=== PATIENT | female | born 2000 | race Caucasian/White ===

== ENCOUNTER 2020-01-02 21:40 | Inpatient (IN) | payer OTHER ==
[2020-01-02] MEDS ORDERED: ONDANSETRON HCL INJ/PF 4 MG/2 ML SDV IV ONE (21:58)
[2020-01-02] MEDS ORDERED: NORMAL SALINE 1000 ML 1,000 ML IV ONE (21:58)
--- NOTE | 2020-01-02 21:59 | ER Document Report ---
ED Medical Screen (RME) - General Chief Complaint: Abdominal Pain Stated Complaint: ABDOMINAL PAIN Time Seen by Provider: 01/02/20 21:56 Mode of Arrival: Ambulatory Information source: Patient Notes: Patient presents complaining of lower pelvic abdominal pain that started just a few hours prior to arrival. Patient reports nausea vomiting or diarrhea. Patient denies any urinary symptoms. Patient denies vaginal pain or discharge. Patient denies any concerns about . Patient does report feeling weak. She describes pain as being sharp. I have greeted and performed a rapid initial assessment of this patient. A comprehensive ED assessment and evaluation of the patient, analysis of test results and completion of the medical decision making process will be conducted by additional ED providers. Physical Exam - Vital signs Vitals: Temp Pulse Resp BP Pulse Ox 98.2 F 94 20 115/55 L 99 01/02/20 21:54 01/02/20 21:54 01/02/20 21:54 01/02/20 21:54 01/02/20 21:54 - Abdominal Tenderness: Tender - Lower pelvic tenderness Course - Vital Signs Vital signs: Temp Pulse Resp BP Pulse Ox 98.2 F 94 20 115/55 L 99 01/02/20 21:54 01/02/20 21:54 01/02/20 21:54 01/02/20 21:54 01/02/20 21:54
[2020-01-02] MEDS ORDERED: MORPHINE SULFATE 10 MG/ML INJ IV ONE (23:43)
--- NOTE | 2020-01-02 23:48 | ER Document Report ---
ED GI/ - General Chief Complaint: Abdominal Pain Stated Complaint: ABDOMINAL PAIN Time Seen by Provider: 01/02/20 21:56 Mode of Arrival: Ambulatory Notes: Patient is a 19-year-old female who presents emergency department with a chief complaint of pelvic pain. Patient states that she ended up having some dyspareunia. States that she also had some weakness. Describes her pain as a sharp pain in her pelvic area during sex. Patient had a miscarriage recently. States that she had labs done by her primary care and they were normal. - Related Data Allergies/Adverse Reactions: No Known Allergies Allergy (Verified 01/03/20 01:54) Past Medical History - General Information source: Patient - Social History Smoking Status: Never Smoker Chew tobacco use (# tins/day): No Frequency of alcohol use: Occasional Drug Abuse: None Family History: Reviewed & Not Pertinent Patient has homicidal ideation: No Review of Systems - Review of Systems Notes: REVIEW OF SYSTEMS: CONSTITUTIONAL : Denies recent illness. Denies recent unintentional weight loss. Denies fever, chills, or sweats. EENT: Denies eye, ear, throat, or mouth pain, discharge, or symptoms. Denies nasal or sinus congestion. CARDIOVASCULAR: Denies chest pain. RESPIRATORY: Denies shortness of breath, cough, congestion, difficulty breathing, or wheezing. GASTROINTESTINAL: Denies nausea, vomiting, and diarrhea. Denies constipation. See HPI. GENITOURINARY: Denies difficulty urinating, burning, blood in urine, urgency or frequency. FEMALE GENITOURINARY: See HPI. MUSCULOSKELETAL: Denies neck and back pain. Denies joint pain or swelling. SKIN: Denies rash, itchiness, or lesions HEMATOLOGIC : Denies easy bruising or bleeding. LYMPHATIC: Denies swollen, painful, enlarged glands. NEUROLOGICAL: Denies no numbness or tingling denies weakness. Denies headache. Denies altered mental status. Denies alteration in speech. PSYCHIATRIC: Denies stress, anxiety, alteration in sleep patterns, or depression. All other systems reviewed and negative. Physical Exam - Vital signs Vitals: Temp Pulse Resp BP Pulse Ox 98.2 F 94 20 115/55 L 99 01/02/20 21:54 01/02/20 21:54 01/02/20 21:54 01/02/20 21:54 01/02/20 21:54 - Notes Notes: PHYSICAL EXAMINATION: GENERAL: Appears well, healthy, well-nourished, no acute distress. HEAD: Normocephalic, atraumatic. EYES: PERRL, conjunctiva normal, all extraocular movements intact, sclera nonicteric ENT: Moist mucous membranes. NECK: Supple, no noticeable swelling, redness, rash. Normal range of motion. LUNGS: Equal breath sounds bilaterally and clear to auscultation. No wheezes rales or rhonchi. CARDIOVASCULAR: S1-S2, regular rate, regular rhythm. Radial pulses 2+, normal. ABDOMEN: Normoactive bowel sounds. Very tender mid lower pelvic area and abdomen, and no masses palpated. EXTREMITIES: Normal strength and range of motion, no pitting or edema. No cyanosis. NEUROLOGICAL: Moves all extremities upon command. Strength 5/5 in all extremities. PSYCH: Normal mood, normal affect. SKIN: Warm, dry. No rash, lesions, ulcerations noted. Normal skin turgor. Course - Re-evaluation Re-evalutation: 01/03/20 00:55 Rhea, PCT at bedside. Cervical motion tenderness noted. Will await wet mount results. Hematology shows a slight leukocytosis of 13,900 with a left shift with 77% neutrophils. Chemistries are unremarkable. hCG is negative. Still also waiting pelvic ultrasound. 01/03/20 01:41 Ultrasound shows a 3 cm complex cystic lesion in the right ovary. There is also a mild amount of free pelvic fluid. Just is reading this as pelvic inflammatory disease with abscess or hemorrhagic cyst rupture. Recommending CT of the abdomen and pelvis. Discussed this with the patient. We will also give Rocephin. 01/03/20 04:31 Patient has a 5.3 cm ovarian abscess. Discussed these results with Dr. Weeks, the [facility] on-call. Patient will be admitted to the [facility] service. - Vital Signs Vital signs: Temp Pulse Resp BP Pulse Ox 98.8 F 73 16 121/52 L 100 01/03/20 06:14 01/03/20 06:14 01/03/20 06:14 01/03/20 06:14 01/03/20 06:14 - Laboratory Result Diagrams: 01/02/20 23:50 01/02/20 23:50 Laboratory results interpreted by me: 10/02/20 10/02/20 23:50 23:50 WBC 13.9 H RDW 14.1 H Absolute Neuts (auto) 10.7 H Total Bilirubin 0.1 L Neonat Total Bilirubin 0.0 L Discharge - Discharge Clinical Impression: Pelvic pain, Right tubo-ovarian abscess Condition: Stable Disposition: ADMITTED INPATIENT Admitting Provider: [facility] Unit Admitted: Surgical Floor - 2nd floor
[2020-01-02 23:58] LABS: ABSOLUTE EOSINOPHILS # (AUTO) 0.3 10^3/uL (0.0-0.6); ABSOLUTE MONOCYTES (AUTO) 0.9 10^3/uL (0.1-1.4); ABSOLUTE NEUT (AUTO) 10.7 10^3/uL (1.7-8.2); BASOPHILS % (AUTO) 0.3 % (0-2); EOSINOPHILS % (AUTO) 2.1 % (0-6); HEMATOCRIT 36.2 % (36.0-47.0); HEMOGLOBIN 12.8 g/dL (12.0-15.5); LYMPHOCYTES % (AUTO) 14.2 % (13-45); MEAN CORPUSCULAR HEMOGLOBIN 29.1 pg (27.0-33.4); MEAN CORPUSCULAR HGB CONC 35.2 g/dL (32.0-36.0); MEAN CORPUSCULAR VOLUME 83 fl (80-97); MONOCYTES % (AUTO) 6.3 % (3-13); PLATELET COUNT 207 10^3/uL (150-450); RED BLOOD COUNT 4.38 10^6/uL (3.72-5.28); RED CELL DISTRIBUTION WIDTH 14.1 % (11.5-14.0); SEGMENTED NEUTROPHILS % (AUTO) 77.1 % (42-78); TOTAL CELLS COUNTED % (AUTO) 100 %; WHITE BLOOD COUNT 13.9 10^3/uL (4.0-10.5)
[2020-01-03 00:19] LABS: ALBUMIN 4.4 g/dL (3.5-5.0); ALKALINE PHOSPHATASE 72 U/L (38-126); ANION GAP 11 (5-19); ASPARTATE AMINO TRANSFERASE 23 U/L (14-36); BILIRUBIN,DIRECT 0.1 mg/dL (0.0-0.4); BILIRUBIN,TOTAL 0.1 mg/dL (0.2-1.3); BLOOD UREA NITROGEN 11 mg/dL (7-20); CALCIUM 9.5 mg/dL (8.4-10.2); CARBON DIOXIDE 23 mmol/L (22-30); CHLORIDE 106 mmol/L (98-107); GLUCOSE 86 mg/dL (75-110); POTASSIUM 3.9 mmol/L (3.6-5.0); TOTAL PROTEIN 7.2 g/dL (6.3-8.2)
--- NOTE | 2020-01-03 01:24 | RADIOLOGY REPORT (SQ) ---
EXAM DESCRIPTION: US PELVIS COMPLETED DATE/TME: 01/02/2020 21:58 CLINICAL HISTORY: 19 years, Female, lower pelvic pain COMPARISON: None. TECHNIQUE: Endovaginal images of the pelvis were obtained. Grayscale imaging and Doppler imaging were performed. LIMITATIONS: None. FINDINGS: Uterus measures approximately 8.2 x 4 x 4.2 cm and appears within normal limits. Endometrium has a homogenous appearance and measures 0.9 cm in thickness. Incidental small nabothian cysts are noted within the uterine cervix. Ovaries measure approximately 4.4 x 5.1 x 4.7 cm on the right and 3.6 x 3 x 2 cm on the left. Right ovary contains a 3 cm mildly complex cyst. No left adnexal mass. There is no evidence of ovarian torsion on Doppler imaging. There is a mild amount of free pelvic fluid. There is also intermediate echogenicity adjacent to the uterus and ovaries, with complex fluid or soft tissue thickening not excluded. IMPRESSION: 3 cm complex cystic lesion within the right ovary. There is also a mild amount of free pelvic fluid and there is nonspecific intermediate echogenicity within the pelvis which could represent complex fluid or soft tissue thickening. Pelvic inflammatory disease with abscess and hemorrhagic cyst rupture would be the main considerations. Clinical correlation is recommended. Contrast-enhanced pelvic CT might provide additional characterization as clinically directed. copyright 2010 [employer]- All Rights Reserved
[2020-01-03 01:29] LABS: EPITHELIALS (WET MOUNT) 3+ EPITHELIALS SEEN; RBCS (WET MOUNT) NO RBCS SEEN; T.VAGINALIS (WET MOUNT) NO TRICHOMONAS SEEN; WBCS (WET MOUNT) RARE WBCS SEEN; YEAST (WET MOUNT) NO YEAST SEEN
[2020-01-03] MEDS ORDERED: CEFTRIAXONE INJ 1000 MG VIAL IV ONE (01:38)
[2020-01-03 02:57] LABS: CHLAM PCR NOT DETECTED (NOT DETECT)
[2020-01-03] MEDS ORDERED: MORPHINE SULFATE 10 MG/ML INJ IV ONE (03:09)
--- NOTE | 2020-01-03 04:07 | RADIOLOGY REPORT (SQ) ---
EXAM DESCRIPTION: CT ABDOMEN PELVIS WITH IV CONTRAST COMPLETED DATE/TME: 01/03/2020 01:29 CLINICAL HISTORY: pelvic pain; eval free fluid COMPARISON: None Available. TECHNIQUE: CT of the abdomen and pelvis performed following IV administration of 81 mL Omnipaque 350. FINDINGS: Lung Bases: The visualized lung bases are clear. Bones: No destructive bone lesions identified. Abdomen: Liver: The liver has normal size and density. No intrahepatic biliary dilatation. Gallbladder: No calcified gallstones. Spleen, Pancreas, and Adrenal Glands: The spleen, pancreas, and adrenal glands are unremarkable. Kidneys: No hydronephrosis or obstructing calculus. Vasculature: The aorta and IVC have normal caliber and position. The portal vein is patent. The proximal visceral and renal arteries are patent. Stomach: The stomach and duodenum have normal course. Other: No free intraperitoneal air. Small amount of free fluid. Pelvis: Bladder: Urinary bladder is unremarkable. Bowel: No dilated loops of large or small bowel. Appendix: Normal appendix. Pelvis: There is a thick-walled cyst arising from the right ovary measures 5.3 x 4.6 x 4.9 cm. IMPRESSION: 1. There is a 5.3 cm thick-walled fluid collection arising from the right ovary. Findings concerning for tubo-ovarian abscess. Differential considerations include pelvic neoplasm. Gynecological consultation recommended. Pelvic MRI may be helpful. This exam was performed according to our departmental dose-optimization program, which includes automated exposure control, adjustment of the mA and/or kV according to patient size and/or use of iterative reconstruction technique.
[2020-01-03] MEDS ORDERED: DOXYCYCLINE HYCLATE INJ 100 MG VIAL IV ONE (04:28)
[2020-01-03] MEDS ORDERED: CEFOXITIN 1 GM/D5W RTU 1 GM/50 ML RTUPB IV ONE (04:28)
[2020-01-03 04:47] LABS: APPEARANCE,URINE CLEAR; BILIRUBIN,URINE NEGATIVE (NEGATIVE); COLOR,URINE STRAW; GLUCOSE, URINE NEGATIVE (NEGATIVE); KETONES,URINE NEGATIVE (NEGATIVE); LEUKOCYTE ESTERASE,URINE NEGATIVE (NEGATIVE); NITRITE,URINE NEGATIVE (NEGATIVE); PROTEIN,URINE NEGATIVE (NEGATIVE); URINE SPECIFIC GRAVITY 1.049; UROBILINOGEN,URINE NEGATIVE mg/dL (<2.0)
[2020-01-03] MEDS ORDERED: DOXYCYCLINE HYCLATE INJ 100 MG VIAL IV SCH (05:00)
[2020-01-03] MEDS ORDERED: CEFOXITIN INJ 2 GM VIAL IV SCH (06:00)
[2020-01-03] MEDS ORDERED: OXYCODONE-ACETAMINOPHEN 5-325 MG TABLET PO PRN (06:29)
--- NOTE | 2020-01-03 06:29 | PDOC H&P ---
History of Present Illness Admission Date/PCP: 01/03/20 05:17 ERICA BENEDICT MD Patient complains of: abdominal pain post intercourse History of Present Illness: HUEY NINO is a 19 year old female who was previously healthy until tonight when she experienced diffuse lower abd pain after intercourse. She reports that the pain has progressed to the right side. She denies prior h/o similar issues. She denies h/o GC/CT. She reports that she is hungry. LMP was 2nd week Sept. She is not on contraception. Past Medical History Gynecological Infection: No Past Surgical History Past Surgical History: Reports: None Social History Information Source: Patient Lives with: Family, Spouse/Significant other Smoking Status: Never Smoker Electronic Cigarette use?: No Hx Recreational Drug Use: No Drugs: None Hx Prescription Drug Abuse: No - Advance Directive Resuscitation Status: Full Code Family History Family History: None Parental Family History Reviewed: No Children Family History Reviewed: NA Sibling(s) Family History Reviewed.: NA Medication/Allergy Allergies/Adverse Reactions: No Known Allergies Allergy (Verified 01/03/20 01:54) Review of Systems Constitutional: ABSENT: chills, fever(s), headache(s), weight gain, weight loss Cardiovascular: ABSENT: chest pain, dyspnea on exertion, edema, orthropnea, palpitations Respiratory: ABSENT: cough, hemoptysis Gastrointestinal: ABSENT: constipation, diarrhea, hematemesis, hematochezia, nausea, vomiting Genitourinary: ABSENT: dysuria, hematuria Neurological: ABSENT: abnormal gait, abnormal speech, confusion, dizziness, focal weakness, syncope Physical Exam - Physical Exam Vital Signs: Temp Pulse Resp BP Pulse Ox 98.8 F 73 16 121/52 L 100 01/03/20 06:14 01/03/20 06:14 01/03/20 06:14 01/03/20 06:14 01/03/20 06:14 Intake & Output 01/01/20 01/02/20 01/03/20 06:59 06:59 06:59 Intake Total 1050 Balance 1050 Weight 71.3 kg General appearance: PRESENT: no acute distress, well-developed, well-nourished Head exam: PRESENT: atraumatic, normocephalic Neck exam: PRESENT: full ROM. ABSENT: carotid bruit, JVD, lymphadenopathy, thyromegaly Respiratory exam: PRESENT: clear to auscultation shabana, symmetrical, unlabored Cardiovascular exam: PRESENT: RRR. ABSENT: diastolic murmur, rubs, systolic murmur Pulses: PRESENT: normal dorsalis pedis pul, +2 pedal pulses bilateral Vascular exam: PRESENT: normal capillary refill GI/Abdominal exam: PRESENT: guarding, normal bowel sounds, rebound - rebound on right, ttp bilaterally, tenderness Rectal exam: PRESENT: deferred Extremities exam: PRESENT: full ROM. ABSENT: calf tenderness, clubbing, pedal edema Neurological exam: PRESENT: alert, awake, oriented to person, oriented to place, oriented to time, oriented to situation, CN II-XII grossly intact. ABSENT: motor sensory deficit Psychiatric exam: PRESENT: appropriate affect, normal mood. ABSENT: homicidal ideation, suicidal ideation Skin exam: PRESENT: dry, intact, warm. ABSENT: cyanosis, rash Result Laboratory Results: 01/02/20 23:50 01/02/20 23:50 01/02/20 01/02/20 01/02/20 23:50 23:50 23:50 WBC 13.9 H RBC 4.38 Hgb 12.8 Hct 36.2 MCV 83 MCH 29.1 MCHC 35.2 RDW 14.1 H Plt Count 207 Seg Neutrophils % 77.1 Sodium 139.7 Potassium 3.9 Chloride 106 Carbon Dioxide 23 Anion Gap 11 BUN 11 Creatinine 0.82 Est GFR ( Amer) > 60 Glucose 86 Calcium 9.5 Total Bilirubin 0.1 L AST 23 Alkaline Phosphatase 72 Total Protein 7.2 Albumin 4.4 Lipase 38.8 Serum HCG, Qual NEGATIVE Urine Color Urine Appearance Urine pH Ur Specific [place] Urine Protein Urine Glucose (UA) Urine Ketones Urine Blood Urine Nitrite Ur Leukocyte Esterase Urine WBC (Auto) Urine RBC (Auto) 01/03/20 03:50 WBC RBC Hgb Hct MCV MCH MCHC RDW Plt Count Seg Neutrophils % Sodium Potassium Chloride Carbon Dioxide Anion Gap BUN Creatinine Est GFR ( Amer) Glucose Calcium Total Bilirubin AST Alkaline Phosphatase Total Protein Albumin Lipase Serum HCG, Qual Urine Color STRAW Urine Appearance CLEAR Urine pH 6.0 Ur Specific [place] 1.049 Urine Protein NEGATIVE Urine Glucose (UA) NEGATIVE Urine Ketones NEGATIVE Urine Blood NEGATIVE Urine Nitrite NEGATIVE Ur Leukocyte Esterase NEGATIVE Urine WBC (Auto) 0 Urine RBC (Auto) 0 Impressions: Pelvis Ultrasound 01/02/20 21:58 IMPRESSION: 3 cm complex cystic lesion within the right ovary. There is also a mild amount of free pelvic fluid and there is nonspecific intermediate echogenicity within the pelvis which could represent complex fluid or soft tissue thickening. Pelvic inflammatory disease with abscess and hemorrhagic cyst rupture would be the main considerations. Clinical correlation is recommended. Contrast-enhanced pelvic CT might provide additional characterization as clinically directed. copyright 2010 [email or web address]- All Rights Reserved Abdomen/Pelvis CT 01/03/20 01:29 IMPRESSION: 1. There is a 5.3 cm thick-walled fluid collection arising from the right ovary. Findings concerning for tubo-ovarian abscess. Differential considerations include pelvic neoplasm. Gynecological consultation recommended. Pelvic MRI may be helpful. This exam was performed according to our departmental dose-optimization program, which includes automated exposure control, adjustment of the mA and/or kV according to patient size and/or use of iterative reconstruction technique. Status: Imported from PACS Assessment & Plan - Diagnosis (1) Pelvic pain Is this a current diagnosis for this admission?: Yes Plan: Likely caused by ovarian cyst/adnexal mass suspected to be TOA at this time. No e/o torsion. US and CT scan reviewed. (2) Right tubo-ovarian abscess Is this a current diagnosis for this admission?: Yes Plan: admit for IV abx. GC/CT negative. Blood cultures done. Afebrile. Pain control written for. Reviewed TOA concerns and will likely need IR drainage at some point if it is amenable to access. Other possible cause would be hemorrhagic cyst - however, appears more like a walled off abscess. Plan of care reviewed with patient. Ok to eat for now. - Time Time Spent: 30 to 50 Minutes Critical Time spent with patient: Less than 15 minutes Medications reviewed and adjusted accordingly: Yes Anticipated Discharge Disposition: Home, Self Care Anticipated Discharge Timeframe: within 72 hours - Inpatient Certification Based on my medical assessment, after consideration of the patient's comorbidities, presenting symptoms, or acuity I expect that the services needed warrant INPATIENT care.: Yes I certify that my determination is in accordance with my understanding of Medicare's requirements for reasonable and necessary INPATIENT services [42 CFR 412.3e].: Yes Medical Necessity: Need For IV Fluids, Need for Pain Control, Need for IV Antibiotics, Need for Surgery Post Hospital Care: D/C [employer] Documentation
[2020-01-03] MEDS ORDERED: HYDROMORPHONE HCL INJ/PF 2 MG/ML AMPULE IV PRN (06:31)
[2020-01-03] MEDS: OXYCODONE-ACETAMINOPHEN 5-325 MG TABLET PO PRN ×3 (07:02→19:41)
[2020-01-03] MEDS: CEFOXITIN SODIUM 2 GM in DEXTROSE 5%-WATER 100 ML IV SCH ×3 (14:43→21:48)
[2020-01-03] MEDS: DOXYCYCLINE HYCLATE 100 MG in DEXTROSE 5%-WATER 250 ML IV SCH (19:23)
[2020-01-04] MEDS: CEFOXITIN SODIUM 2 GM in DEXTROSE 5%-WATER 100 ML IV SCH ×4 (03:07→21:19)
[2020-01-04] MEDS: DOXYCYCLINE HYCLATE 100 MG in DEXTROSE 5%-WATER 250 ML IV SCH ×2 (05:46→18:10)
[2020-01-04] MEDS: OXYCODONE-ACETAMINOPHEN 5-325 MG TABLET PO PRN ×4 (05:51→21:19)
[2020-01-04] MEDS: ONDANSETRON HCL INJ/PF 4 MG/2 ML SDV IV PRN ×2 (08:28→23:14)
--- NOTE | 2020-01-04 09:26 | PDOC PROGRESS REPORT ---
Subjective Progress Note for:: 01/04/20 Subjective:: Feeling better today. Reason For Visit: TUBO-OVARIAN ABSCESS Physical Exam - Physical Exam Vital Signs: Temp Pulse Resp BP Pulse Ox 97.8 F 53 L 16 102/51 L 97 01/04/20 07:30 01/04/20 07:23 01/03/20 19:22 01/04/20 07:23 01/04/20 07:23 Intake & Output 01/03/20 01/04/20 01/05/20 06:59 06:59 06:59 Intake Total 1050 250 Balance 1050 250 Weight 71.3 kg 75 kg General appearance: PRESENT: no acute distress, well-developed, well-nourished GI/Abdominal exam: PRESENT: tenderness - over pelvis. Psychiatric exam: PRESENT: appropriate affect, normal mood. ABSENT: homicidal ideation, suicidal ideation Result Laboratory Results: 01/02/20 23:50 01/02/20 23:50 Impressions: Pelvis Ultrasound 01/02/20 21:58 IMPRESSION: 3 cm complex cystic lesion within the right ovary. There is also a mild amount of free pelvic fluid and there is nonspecific intermediate echogenicity within the pelvis which could represent complex fluid or soft tissue thickening. Pelvic inflammatory disease with abscess and hemorrhagic cyst rupture would be the main considerations. Clinical correlation is recommended. Contrast-enhanced pelvic CT might provide additional characterization as clinically directed. copyright 2011 [employer]- All Rights Reserved Abdomen/Pelvis CT 01/03/20 01:29 IMPRESSION: 1. There is a 5.3 cm thick-walled fluid collection arising from the right ovary. Findings concerning for tubo-ovarian abscess. Differential considerations include pelvic neoplasm. Gynecological consultation recommended. Pelvic MRI may be helpful. This exam was performed according to our departmental dose-optimization program, which includes automated exposure control, adjustment of the mA and/or kV according to patient size and/or use of iterative reconstruction technique. Improving clinically with the antibiotics. Assessment & Plan - Diagnosis (1) Pelvic pain Is this a current diagnosis for this admission?: Yes Plan: continue abx and followup sono and cbc tomorrow - Time Time Spent with patient: 15-24 minutes Medications reviewed and adjusted accordingly: Yes Anticipated discharge: Home Anticipated DC Timeframe: within 36 hours
[2020-01-05] MEDS: CEFOXITIN SODIUM 2 GM in DEXTROSE 5%-WATER 100 ML IV SCH ×3 (03:31→15:32)
[2020-01-05] MEDS: OXYCODONE-ACETAMINOPHEN 5-325 MG TABLET PO PRN ×3 (04:21→18:30)
[2020-01-05] MEDS: DOXYCYCLINE HYCLATE 100 MG in DEXTROSE 5%-WATER 250 ML IV SCH ×2 (05:50→18:18)
[2020-01-05] MEDS: ONDANSETRON HCL INJ/PF 4 MG/2 ML SDV IV PRN (08:12)
--- NOTE | 2020-01-05 09:46 | PDOC PROGRESS REPORT ---
Subjective Progress Note for:: 01/05/20 Subjective:: pt indicates she is still having some abdominal pain but that it is improved. I was notified by Micro regarding Staph Lugrenes in 1/4 blood cultures. It is sensitive to the current antibiotics. She is tolerating a regular diet. ambulating well. Reason For Visit: TUBO-OVARIAN ABSCESS Physical Exam - Physical Exam Vital Signs: Temp Pulse Resp BP Pulse Ox 97.6 F 57 L 16 106/52 L 96 01/05/20 09:02 01/05/20 09:02 01/05/20 09:02 01/05/20 09:02 01/05/20 09:02 Intake & Output 01/04/20 01/05/20 01/06/20 06:59 06:59 06:59 Intake Total 250 1850 250 Balance 250 1850 250 Weight 75 kg 75 kg General appearance: PRESENT: no acute distress, cooperative GI/Abdominal exam: PRESENT: soft, tenderness - left lower quadrant mild tenderness with palpation. indicates better than yesterday however. Result Laboratory Results: 01/02/20 23:50 01/02/20 23:50 01/03/20 01:56 Blood Blood Culture (PCR) - Final 01/03/20 01:56 Blood Blood Culture - Final Staphylococcus Lugdunensis Impressions: Pelvis Ultrasound 01/02/20 21:58 IMPRESSION: 3 cm complex cystic lesion within the right ovary. There is also a mild amount of free pelvic fluid and there is nonspecific intermediate echogenicity within the pelvis which could represent complex fluid or soft tissue thickening. Pelvic inflammatory disease with abscess and hemorrhagic cyst rupture would be the main considerations. Clinical correlation is recommended. Contrast-enhanced pelvic CT might provide additional characterization as clinically directed. copyright 2011 [employer]- All Rights Reserved Abdomen/Pelvis CT 01/03/20 01:29 IMPRESSION: 1. There is a 5.3 cm thick-walled fluid collection arising from the right ovary. Findings concerning for tubo-ovarian abscess. Differential considerations include pelvic neoplasm. Gynecological consultation recommended. Pelvic MRI may be helpful. This exam was performed according to our departmental dose-optimization program, which includes automated exposure control, adjustment of the mA and/or kV according to patient size and/or use of iterative reconstruction technique. Assessment & Plan - Diagnosis (1) Pelvic pain Is this a current diagnosis for this admission?: Yes (2) Right tubo-ovarian abscess Is this a current diagnosis for this admission?: Yes (3) Sepsis Qualifiers: Sepsis type: sepsis due to unspecified organism Sepsis acute organ dysfunction status: unspecified Qualified Code(s): A41.9 - Sepsis, unspecified organism Is this a current diagnosis for this admission?: Yes - Time Time Spent with patient: Less than 15 minutes Medications reviewed and adjusted accordingly: No Anticipated discharge: Home Anticipated DC Timeframe: within 48 hours - Inpatient Certification Based on my medical assessment, after consideration of the patient's comorbidities, presenting symptoms, or acuity I expect that the services needed warrant INPATIENT care.: Yes I certify that my determination is in accordance with my understanding of Medicare's requirements for reasonable and necessary INPATIENT services [42 CFR 412.3e].: Yes Medical Necessity: Need for IV Antibiotics - Plan Summary Plan Summary: Have requested an Infectious Disease consult to obtain input on time needed for IV antibiotics on this particular organism. Will follow up her repeat pelvic sono that Dr. Vela ordered. Hopefully patient will be ok to go home today or tomorrow but needs this follow up first.
[2020-01-05 10:02] LABS: HEMATOCRIT 36.1 % (36.0-47.0); HEMOGLOBIN 12.5 g/dL (12.0-15.5); MEAN CORPUSCULAR HEMOGLOBIN 28.9 pg (27.0-33.4); MEAN CORPUSCULAR HGB CONC 34.7 g/dL (32.0-36.0); MEAN CORPUSCULAR VOLUME 83 fl (80-97); PLATELET COUNT 188 10^3/uL (150-450); RED BLOOD COUNT 4.35 10^6/uL (3.72-5.28); RED CELL DISTRIBUTION WIDTH 13.4 % (11.5-14.0); WHITE BLOOD COUNT 9.9 10^3/uL (4.0-10.5)
--- NOTE | 2020-01-05 10:22 | RADIOLOGY REPORT (SQ) ---
EXAM DESCRIPTION: U/S NON OB PEL TV W/DOPPLER IMAGES COMPLETED DATE/TIME: 01/05/2020 9:36 am REASON FOR STUDY: follow up COMPARISON: 01/03/2020 TECHNIQUE: Dynamic and static grayscale images acquired of the pelvis via transvaginal approach and recorded on PACS. Additional selected color Doppler and spectral images recorded. LIMITATIONS: None. FINDINGS: UTERUS: Contour normal. No mass. ENDOMETRIAL STRIPE: No focal or generalized thickening. No masses. CERVIX: Multiple Nabothian cysts. RIGHT OVARY AND DOPPLER: As on the prior examination, a complex cystic lesion within the right ovary measures 3.0 x 3.0 x 1.7 cm. Considerations for this finding includes possible hemorrhagic cyst. N ormal arterial vascular flow without evidence for torsion. Trace of free fluid in the right adnexum. LEFT OVARY AND DOPPLER: Normal size. No worrisome masses. Normal arterial vascular flow without evide nce for torsion. FREE FLUID: Trace of free fluid in the cul de sac. OTHER: No other significant finding. MEASUREMENTS: UTERUS: 7.4 x 4.4 x 4.4 cm ENDOMETRIAL STRIPE: 13 mm RIGHT OVARY: 4.8 x 4.4 x 4.2 cm LEFT OVARY: 3.5 x 2.7 x 2.1 cm IMPRESSION: 1. As on the prior examination dated 01/03/2020, complex cystic lesion within the right ovary, may represent hemorrhagic cyst. 2. Trace of free fluid in the right adnexum and cul-de-sac. 3. Multiple Nabothian cysts in the cervix region. TECHNICAL DOCUMENTATION: JOB ID: [id number] 2010 [employer]- All Rights Reserved Reading location - IP/workstation name: [email or web address]
--- NOTE | 2020-01-05 18:24 | Progress Note ---
Provider Note Provider Note: ID Note- I was asked to comment on the positive blood culture (Staph lugdunensis) in one of two sets of blood cultures done on January 02. The patient has a clinical diagnosis of tuboovarian abscess (TOA). She is reportedly responding clinically to antibiotics. Staph lugdunensis is a common skin contaminant, but it can be a pathogen. In this patient's case, I think that it is NOT a pathogen. Recommend continuing current therapy for TOA. I see no reason why the patient cannot continue treatment of TOA with oral antibiotics at home if she is clinically improved. I discussed the patient's case with Dr. Vuong by phone. Please contact me if there are questions. Da Nova MD Pager: [phone]
--- NOTE | 2020-01-05 18:38 | PDOC DISCHARGE SUMMARY ---
Impression - Admit/DC Date/PCP Admission Date/Primary Care Provider: 01/03/20 05:17 ERICA BENEDICT MD Discharge Date: 01/05/20 - Discharge Diagnosis (1) Pelvic pain Is this a current diagnosis for this admission?: Yes (2) Right tubo-ovarian abscess Is this a current diagnosis for this admission?: Yes (3) Sepsis Is this a current diagnosis for this admission?: Yes - Assessment Summary: patient admitted for tuboovarian abscess. BC returned with Lola Liao and ID was consulted. Per Dr. Nova her IV treatment is appropriate and since she has improved clinically is ok to discharge home. Her sono today and WBC is improved from admission and the patient feels much better. - Additional Information Resuscitation Status: Full Code Discharge Diet: As Tolerated Discharge Activity: Balance Activity w/Rest, Pelvic Rest Referrals: ERICA BENEDICT MD [Primary Care Provider] - Follow up as needed Prescriptions: Oxycodone HCl/Acetaminophen [Percocet 5-325 mg Tablet] 1 tab PO Q4HP PRN #20 tablet PRN Reason: Doxycycline Hyclate 100 mg PO BID #20 tablet. Metronidazole [Flagyl 500 mg Tablet] 500 mg PO TID #30 tablet Ibuprofen [Ibu] 800 mg PO Q8 #60 tablet Cephalexin Monohydrate [Keflex 500 mg Capsule] 500 mg PO QID #20 capsule Home Medications: Cephalexin Monohydrate [Keflex 500 mg Capsule] 500 mg PO QID #20 capsule 01/05/20 Doxycycline Hyclate 100 mg PO BID #20 tablet. 01/05/20 Ibuprofen [Ibu] 800 mg PO Q8 #60 tablet 01/05/20 Metronidazole [Flagyl 500 mg Tablet] 500 mg PO TID #30 tablet 01/05/20 Oxycodone HCl/Acetaminophen [Percocet 5-325 mg Tablet] 1 tab PO Q4HP PRN #20 tablet 01/05/20 History of Present Illiness History of Present Illness: HUEY NINO is a 19 year old female Physical Exam - Physical Exam Vital Signs: Temp Pulse Resp BP Pulse Ox 98.0 F 61 16 99/49 L 100 01/05/20 16:00 01/05/20 16:00 01/05/20 16:00 01/05/20 16:32 01/05/20 16:00 Intake & Output 01/04/20 01/05/20 01/06/20 06:59 06:59 06:59 Intake Total 250 1850 471 Balance 250 1850 471 Weight 75 kg 75 kg Results Laboratory Results: WBC 9.9 10^3/uL (4.0-10.5) 01/05/20 09:49 RBC 4.35 10^6/uL (3.72-5.28) 01/05/20 09:49 Hgb 12.5 g/dL (12.0-15.5) 01/05/20 09:49 Hct 36.1 % (36.0-47.0) 01/05/20 09:49 MCV 83 fl (80-97) 01/05/20 09:49 MCH 28.9 pg (27.0-33.4) 01/05/20 09:49 MCHC 34.7 g/dL (32.0-36.0) 01/05/20 09:49 RDW 13.4 % (11.5-14.0) 01/05/20 09:49 Plt Count 188 10^3/uL (150-450) 01/05/20 09:49 Lymph % (Auto) 14.2 % (13-45) 01/02/20 23:50 [place] % (Auto) 6.3 % (3-13) 01/02/20 23:50 Eos % (Auto) 2.1 % (0-6) 01/02/20 23:50 Baso % (Auto) 0.3 % (0-2) 01/02/20 23:50 Absolute Neuts (auto) 10.7 10^3/uL (1.7-8.2) H 01/02/20 23:50 Absolute Lymphs (auto) 2.0 10^3/uL (0.5-4.7) 01/02/20 23:50 Absolute Monos (auto) 0.9 10^3/uL (0.1-1.4) 01/02/20 23:50 Absolute Eos (auto) 0.3 10^3/uL (0.0-0.6) 01/02/20 23:50 Absolute Basos (auto) 0.0 10^3/uL (0.0-0.2) 01/02/20 23:50 Seg Neutrophils % 77.1 % (42-78) 01/02/20 23:50 Sodium 139.7 mmol/L (137-145) 01/02/20 23:50 Potassium 3.9 mmol/L (3.6-5.0) 01/02/20 23:50 Chloride 106 mmol/L (98-107) 01/02/20 23:50 Carbon Dioxide 23 mmol/L (22-30) 01/02/20 23:50 Anion Gap 11 (5-19) 01/02/20 23:50 BUN 11 mg/dL (7-20) 01/02/20 23:50 Creatinine 0.82 mg/dL (0.52-1.25) 01/02/20 23:50 Est GFR ( Amer) > 60 (>60) 01/02/20 23:50 Est GFR (MDRD) Non-Af > 60 (>60) 01/02/20 23:50 Glucose 86 mg/dL (75-110) 01/02/20 23:50 Calcium 9.5 mg/dL (8.4-10.2) 01/02/20 23:50 Total Bilirubin 0.1 mg/dL (0.2-1.3) L 01/02/20 23:50 Direct Bilirubin 0.1 mg/dL (0.0-0.4) 01/02/20 23:50 Neonat Total Bilirubin 0.0 mg/dL (0.1-1.1) L 01/02/20 23:50 Neonat Direct Bilirubin 0.0 mg/dL (0.0-0.3) 01/02/20 23:50 Neonat Indirect Bili 0.0 mg/dL (0.0-1.1) 01/02/20 23:50 AST 23 U/L (14-36) 01/02/20 23:50 ALT 15 U/L (<35) 01/02/20 23:50 Alkaline Phosphatase 72 U/L (38-126) 01/02/20 23:50 Total Protein 7.2 g/dL (6.3-8.2) 01/02/20 23:50 Albumin 4.4 g/dL (3.5-5.0) 01/02/20 23:50 Lipase 38.8 U/L (23-300) 01/02/20 23:50 Serum HCG, Qual NEGATIVE (NEGATIVE) 01/02/20 23:50 Urine Color STRAW 01/03/20 03:50 Urine Appearance CLEAR 01/03/20 03:50 Urine pH 6.0 (5.0-9.0) 01/03/20 03:50 Ur Specific [place] 1.049 01/03/20 03:50 Urine Protein NEGATIVE mg/dL (NEGATIVE) 01/03/20 03:50 Urine Glucose (UA) NEGATIVE mg/dL (NEGATIVE) 01/03/20 03:50 Urine Ketones NEGATIVE mg/dL (NEGATIVE) 01/03/20 03:50 Urine Blood NEGATIVE (NEGATIVE) 01/03/20 03:50 Urine Nitrite NEGATIVE (NEGATIVE) 01/03/20 03:50 Urine Bilirubin NEGATIVE (NEGATIVE) 01/03/20 03:50 Urine Urobilinogen NEGATIVE mg/dL (<2.0) 01/03/20 03:50 Ur Leukocyte Esterase NEGATIVE (NEGATIVE) 01/03/20 03:50 Urine WBC (Auto) 0 /HPF 01/03/20 03:50 Urine RBC (Auto) 0 /HPF 01/03/20 03:50 Urine Mucus (Auto) RARE /LPF 01/03/20 03:50 Urine Ascorbic Acid NEGATIVE (NEGATIVE) 01/03/20 03:50 Epi Cells (Wet Prep) 3+ EPITHELIALS SEEN 01/03/20 00:50 Trichomonas (Wet Prep) NO TRICHOMONAS SEEN 01/03/20 00:50 Vaginal WBC RARE WBCS SEEN 01/03/20 00:50 Vaginal RBC NO RBCS SEEN 01/03/20 00:50 Vaginal Yeast NO YEAST SEEN 01/03/20 00:50 Chlamydia DNA (PCR) NOT DETECTED (NOT DETECT) 01/03/20 00:50 N.gonorrhoeae DNA (PCR) NOT DETECTED (NOT DETECT) 01/03/20 00:50 Impressions: Pelvis Ultrasound 01/02/20 21:58 IMPRESSION: 3 cm complex cystic lesion within the right ovary. There is also a mild amount of free pelvic fluid and there is nonspecific intermediate echogenicity within the pelvis which could represent complex fluid or soft tissue thickening. Pelvic inflammatory disease with abscess and hemorrhagic cyst rupture would be the main considerations. Clinical correlation is recommended. Contrast-enhanced pelvic CT might provide additional characterization as clinically directed. copyright 2011 [employer]- All Rights Reserved Abdomen/Pelvis CT 01/03/20 01:29 IMPRESSION: 1. There is a 5.3 cm thick-walled fluid collection arising from the right ovary. Findings concerning for tubo-ovarian abscess. Differential considerations include pelvic neoplasm. Gynecological consultation recommended. Pelvic MRI may be helpful. This exam was performed according to our departmental dose-optimization program, which includes automated exposure control, adjustment of the mA and/or kV according to patient size and/or use of iterative reconstruction technique. Transvaginal US 01/05/20 07:30 IMPRESSION: 1. As on the prior examination dated 01/03/2020, complex cystic l esion within the right ovary, may represent hemorrhagic cyst. 2. Trace of free fluid in the right adnexum and cul-de-sac. 3. Multiple Nabothian cysts in the cervix region. Stroke Is this a Stroke Patient?: No Acute Heart Failure Is this a Heart Failure Patient?: No
[2020-01-05 20:17] VITALS: BP 122/60
== END 2020-01-05 21:35 | disposition home or self-care (01) | DRG 759 ==
LOC: ER 21:40 → EH 01-03 05:17 → 2N 01-03 06:05
PROVIDERS: ADMIT Student in an Organized Health Care Education/Training Program; ATTEND Student in an Organized Health Care Education/Training Program
DX: N70.93 Salpingitis and oophoritis, unspecified (principal); R10.9 Unspecified abdominal pain
CPT/HCPCS: 36415; 74177; 76830; 76856; 80053; 81001; 83690; 84703; 85025; 85027; 87040; 87077; 87150; 87186; 87210; 87491; 87591; 93976; 96361; 96365; 96375; 96376; 99285; J0694; J0696; J1170; J2270; J2405; J3490; J7030; J7060

== ENCOUNTER → 2020-03-11 | Outpatient (CLI) | payer OTHER ==
--- NOTE | 2020-03-11 15:54 | RADIOLOGY REPORT (SQ) ---
EXAM DESCRIPTION: U/S NON OB PEL TV W/DOPPLER IMAGES COMPLETED DATE/TIME: 03/11/2020 2:50 pm REASON FOR STUDY: TUBO OVARIAN ABSCESS N70.93 SALPINGITIS AND OOPHORITIS, UNSPECIFIED COMPARISON: None. TECHNIQUE: Dynamic and static grayscale images acquired of the pelvis via transvaginal approach and recorded on PACS. Additional selected color Doppler and spectral images recorded. LIMITATIONS: None. FINDINGS: UTERUS: Contour normal. No mass. ENDOMETRIAL STRIPE: No focal or generalized thickening. No masses. CERVIX: 2.3 cm. No nabothian cysts. RIGHT OVARY AND DOPPLER: Normal size. Complex ovarian cyst measures 5 x 4.4 x 4.1 cm. Normal arteria l vascular flow without evidence for torsion. LEFT OVARY AND DOPPLER: Normal size. No worrisome masses. Normal arterial vascular flow without evide nce for torsion. FREE FLUID: None noted. OTHER: No other significant finding. MEASUREMENTS: UTERUS: 7.4 x 5.1 x 3.9 cm. ENDOMETRIAL STRIPE: 11 mm. RIGHT OVARY: 5.9 x 5.3 x 4.7 cm. LEFT OVARY: 3.2 x 2.4 x 2.9 cm. IMPRESSION: There is a complex cyst in the right ovary measuring 5 x 4.4 x 4.1 cm. Possible hemorrh agic cyst. Recommend follow-up ultrasound in 6 to 12 weeks. TECHNICAL DOCUMENTATION: JOB ID: [id number] [employer]- All Rights Reserved Rev-08/17 Reading location - IP/workstation name: [email or web address]
== END ==
LOC: RAD 12:50
PROVIDERS: ATTEND Physician Assistant
DX: N70.93 Salpingitis and oophoritis, unspecified (principal); N83.291 Other ovarian cyst, right side
CPT/HCPCS: 76830; 93976

== ENCOUNTER 2020-04-29 10:41 | Emergency (ER) | payer OTHER ==
--- NOTE | 2020-04-29 11:08 | ER Document Report ---
ED Medical Screen (RME) - General Chief Complaint: Pelvic Pain Stated Complaint: PELVIC PAIN Time Seen by Provider: 04/29/20 11:06 Primary Care Provider: BRANDON SCHOFIELD PA [Primary Care Provider] - Follow up as needed Notes: HPI: 19-year-old female history of a right ovarian abscess in December 2019 presenting for worsening pelvic pain over the last week to 2 weeks. Especially in the last 2 days. No fever no vomiting is concerned that the abscess is recurring PHYSICAL EXAMINATION: Mild tenderness across the pelvis on palpation, exam deferred in triage I have greeted and performed a rapid initial assessment of this patient. A comprehensive ED assessment and evaluation of the patient, analysis of test results and completion of medical decision making process will be conducted by an additional ED providers. Please note that clinical decision making for this patient was made during the 2019 pandemic of novel coronavirus which caused a significant strain on the healthcare system including at this particular facility. Criteria for admission discharge and level of care decisions as well as treatment decisions have necessarily changed - Related Data Allergies/Adverse Reactions: No Known Allergies Allergy (Verified 04/29/20 10:59) Past Medical History Psychiatric Medical History: Denies: Hx Depression Physical Exam - Vital signs Vitals: Temp Pulse Resp BP Pulse Ox 98.0 F 76 18 145/71 H 100 04/29/20 10:44 04/29/20 10:44 04/29/20 10:44 04/29/20 10:44 04/29/20 10:44 Course - Vital Signs Vital signs: Temp Pulse Resp BP Pulse Ox 98.0 F 76 18 145/71 H 100 04/29/20 10:44 04/29/20 10:44 04/29/20 10:44 04/29/20 10:44 04/29/20 10:44 Doctor's Discharge - Discharge Referrals: BRANDON SCHOFIELD PA [Primary Care Provider] - Follow up as needed
[2020-04-29 12:01] LABS: APPEARANCE,URINE CLEAR; BILIRUBIN,URINE NEGATIVE (NEGATIVE); COLOR,URINE YELLOW; GLUCOSE, URINE NEGATIVE (NEGATIVE); KETONES,URINE NEGATIVE (NEGATIVE); LEUKOCYTE ESTERASE,URINE NEGATIVE (NEGATIVE); NITRITE,URINE NEGATIVE (NEGATIVE); PROTEIN,URINE NEGATIVE (NEGATIVE); URINE SPECIFIC GRAVITY 1.011; UROBILINOGEN,URINE NEGATIVE mg/dL (<2.0)
[2020-04-29 12:26] LABS: ABSOLUTE BASOPHILS # (AUTO) 0.1 10^3/uL (0.0-0.2); ABSOLUTE EOSINOPHILS # (AUTO) 0.4 10^3/uL (0.0-0.6); ABSOLUTE LYMPHOCYTES (AUTO) 2.8 10^3/uL (0.5-4.7); ABSOLUTE MONOCYTES (AUTO) 0.6 10^3/uL (0.1-1.4); ABSOLUTE NEUT (AUTO) 4.4 10^3/uL (1.7-8.2); BASOPHILS % (AUTO) 0.8 % (0-2); EOSINOPHILS % (AUTO) 5.3 % (0-6); HEMATOCRIT 41.3 % (36.0-47.0); HEMOGLOBIN 13.5 g/dL (12.0-15.5); LYMPHOCYTES % (AUTO) 33.8 % (13-45); MEAN CORPUSCULAR HEMOGLOBIN 27.4 pg (27.0-33.4); MEAN CORPUSCULAR HGB CONC 32.7 g/dL (32.0-36.0); MEAN CORPUSCULAR VOLUME 84 fl (80-97); MONOCYTES % (AUTO) 7.2 % (3-13); PLATELET COUNT 216 10^3/uL (150-450); RED BLOOD COUNT 4.94 10^6/uL (3.72-5.28); RED CELL DISTRIBUTION WIDTH 13.6 % (11.5-14.0); SEGMENTED NEUTROPHILS % (AUTO) 52.9 % (42-78); TOTAL CELLS COUNTED % (AUTO) 100 %; WHITE BLOOD COUNT 8.3 10^3/uL (4.0-10.5)
--- NOTE | 2020-04-29 12:42 | RADIOLOGY REPORT (SQ) ---
EXAM DESCRIPTION: U/S NON OB PEL TV W/DOPPLER IMAGES COMPLETED DATE/TIME: 04/29/2020 12:11 pm REASON FOR STUDY: pelvic pain hx ovarian abscess COMPARISON: None. TECHNIQUE: Dynamic and static grayscale images acquired of the pelvis via transvaginal approach and recorded on PACS. Additional selected color Doppler and spectral images recorded. LIMITATIONS: None. FINDINGS: UTERUS: Contour normal. No mass. ENDOMETRIAL STRIPE: No focal or generalized thickening. No masses. CERVIX: No nabothian cysts. RIGHT OVARY AND DOPPLER: Normal size. No worrisome masses. Normal arterial vascular flow without evid ence for torsion. LEFT OVARY AND DOPPLER: Normal size. No worrisome masses. Normal arterial vascular flow without evide nce for torsion. FREE FLUID: None noted. OTHER: No other significant finding. MEASUREMENTS: UTERUS: 6.8 x 4.1 x 3.6 cm ENDOMETRIAL STRIPE: 0.5 cm RIGHT OVARY: 3.5 x 2.4 x 2.1 cm LEFT OVARY: 3.6 x 3.1 x 2.8 cm IMPRESSION: Normal transvaginal pelvic ultrasound. Specifically, no evidence of tubo-ovarian absces s. TECHNICAL DOCUMENTATION: JOB ID: [id number] 2010 [employer]- All Rights Reserved Reading location - IP/workstation name: [email or web address]
[2020-04-29 12:55] LABS: ALBUMIN 4.6 g/dL (3.5-5.0); ALKALINE PHOSPHATASE 84 U/L (38-126); ANION GAP 13 (5-19); ASPARTATE AMINO TRANSFERASE 26 U/L (14-36); BILIRUBIN,DIRECT 0.3 mg/dL (0.0-0.4); BILIRUBIN,TOTAL 0.6 mg/dL (0.2-1.3); BLOOD UREA NITROGEN 10 mg/dL (7-20); CALCIUM 9.6 mg/dL (8.4-10.2); CARBON DIOXIDE 24 mmol/L (22-30); CHLORIDE 104 mmol/L (98-107); GLUCOSE 89 mg/dL (75-110); POTASSIUM 4.3 mmol/L (3.6-5.0); TOTAL PROTEIN 7.8 g/dL (6.3-8.2)
[2020-04-29 13:20] LABS: RBCS (WET MOUNT) NO RBCS SEEN; T.VAGINALIS (WET MOUNT) NO TRICHOMONAS SEEN; WBCS (WET MOUNT) RARE WBCS SEEN; YEAST (WET MOUNT) NO YEAST SEEN
[2020-04-29 13:54] VITALS: BP 127/77
--- NOTE | 2020-04-29 14:02 | ER Document Report ---
ED GI/ - General Chief Complaint: Lower Abdominal Pain Stated Complaint: PELVIC PAIN Time Seen by Provider: 04/29/20 11:06 Primary Care Provider: BRANDON SCHOFIELD PA [NO LOCAL MD] - Follow up as needed - HPI Notes: Patient is a 19-year-old female with a history of tubo-ovarian abscess in December 2019 who presents with pelvic pain that has been ongoing for the past 3 months. Patient states she was treated appropriately for her TOA with inpatient and outpatient antibiotics. She states she was feeling much better but at the end of January 2020 she began to have right pelvic pain that was mild in nature. She states the pain began to worsen 2 weeks ago and then reports bilateral pelvic pain. She states the pain became much more significant in the last 2 days. She denies fever, vomiting, diarrhea, vaginal discharge, and vaginal bleeding. She denies any other complaints. She denies any other medical problems. - Related Data Allergies/Adverse Reactions: No Known Allergies Allergy (Verified 04/29/20 10:59) Past Medical History - General Information source: Patient - Social History Smoking Status: Former Smoker Chew tobacco use (# tins/day): No Frequency of alcohol use: Occasional Drug Abuse: Marijuana Family History: Reviewed & Not Pertinent Psychiatric Medical History: Denies: Hx Depression Review of Systems - Review of Systems Constitutional: No symptoms reported EENT: No symptoms reported Cardiovascular: No symptoms reported Respiratory: No symptoms reported Gastrointestinal: No symptoms reported Genitourinary: No symptoms reported Female Genitourinary: See HPI Musculoskeletal: No symptoms reported Skin: No symptoms reported Hematologic/Lymphatic: No symptoms reported Neurological/Psychological: No symptoms reported Physical Exam - Vital signs Vitals: Temp Pulse Resp BP Pulse Ox 98.0 F 76 18 145/71 H 100 04/29/20 10:44 04/29/20 10:44 04/29/20 10:44 04/29/20 10:44 04/29/20 10:44 - Notes Notes: PHYSICAL EXAMINATION: VITALS: Vitals reviewed and within normal limits. GENERAL: Well-appearing, well-nourished and in no acute distress. HEAD: Atraumatic, normocephalic. EYES: Pupils equal, round, and reactive to light, extraocular movements intact, sclera anicteric, conjunctiva are normal. ENT: Nares patent. Moist mucous membranes. Oropharynx clear without exudates. NECK: Normal range of motion, supple without lymphadenopathy. LUNGS: Breath sounds clear to auscultation bilaterally and equal. No wheezes, rales, or rhonchi. HEART: Regular, rate, and rhythm without murmurs. ABDOMEN: Mild diffuse lower abdominal tenderness. Soft abdomen with normoactive bowel sounds. No guarding, no rebound. No masses appreciated. FEMALE GENITOURINARY: Normal external genitalia with no visible lesions. Cervix closed with white discharged visualized. No cervical motion tenderness. (Chaperoned by Mindy Newman RN) EXTREMITIES: Normal range of motion, no pitting or edema. No cyanosis. NEUROLOGICAL: No focal neurological deficits. Moves all extremities spontaneously and on command. PSYCH: Normal mood, normal affect. SKIN: Warm, Dry, normal turgor, no rashes or lesions noted. Course - Re-evaluation Re-evalutation: Presentation of generalized, pelvic pain. Abdominal exam is benign without any focal tenderness. Vitals are normal at the time of arrival. Laboratories are unremarkable without evidence of cystitis, , or leukocytosis. Transvaginal US is negative and shows no TOA. Patient is overall very well in appearance. Based on clinical history and examination I do not suspect an acute appendicitis, tubo-ovarian abscess, related pathology, pelvic inflammatory disease, mesenteric ischemia, or pyelonephritis. Pelvic exam without cervical motion tenderness or focal adnexal tenderness. Advised that the patient follow up with her OPHTHALMIC SURGICAL ASSISTANT in the coming week. At this time will discharge with return precautions and follow-up recommendations. Verbal discharge instructions given a the bedside and opportunity for questions given. Medication warnings reviewed. Patient is in agreement with this plan and has verbalized understanding of return precautions and the need for OPHTHALMIC SURGICAL ASSISTANT follow-up in the next 24-72 hours. - Vital Signs Vital signs: Temp Pulse Resp BP Pulse Ox 98.0 F 76 18 145/71 H 100 04/29/20 10:44 04/29/20 10:44 04/29/20 10:44 04/29/20 10:44 04/29/20 10:44 - Laboratory Results Result Diagrams: 04/29/20 12:10 04/29/20 12:10 Critical Laboratory Results Reviewed: No Critical Results - Radiology Results Radiology Results Interpreted: Transvaginal US 04/29/20 11:07 IMPRESSION: Normal transvaginal pelvic ultrasound. Specifically, no evidence of tubo-ovarian abscess. Critical Radiology Results Reviewed: No Critical Results Discharge - Discharge Clinical Impression: Pelvic pain Condition: Stable Disposition: HOME, SELF-CARE Instructions: Pelvic Pain ([facility]) Additional Instructions: Follow up with your OPHTHALMIC SURGICAL ASSISTANT concerning your chronic pelvic pain. Referrals: BRANDON SCHOFIELD PA [NO LOCAL MD] - Follow up as needed
[2020-04-29 14:50] LABS: CHLAM PCR NOT DETECTED (NOT DETECT)
== END 2020-04-29 14:05 | disposition home or self-care (01) ==
LOC: ER 10:41
DX: R10.2 Pelvic and perineal pain (principal); F12.10 Cannabis abuse, uncomplicated; Z87.42 Personal history of other diseases of the female genital tract; Z87.891 Personal history of nicotine dependence
CPT/HCPCS: 36415; 76830; 80053; 81001; 84703; 85025; 87210; 87491; 87591; 93976; 99284